=== PATIENT | female | born 1995 | race Caucasian/White ===

== ENCOUNTER 2016-06-25 15:21 | Emergency (ER) | payer MEDICAID ==
[2016-06-25 17:21] VITALS: BP 133/79
== END 2016-06-25 17:21 | disposition home or self-care (01) ==
LOC: ED 15:21
DX: S83.92XA Sprain of unspecified site of left knee, initial encounter (principal); X58.XXXA Exposure to other specified factors, initial encounter; Y93.89 Activity, other specified; Y99.8 Other external cause status; Y92.832 Beach as the place of occurrence of the external cause

== ENCOUNTER 2016-10-11 16:35 | Emergency (ER) | payer MEDICAID ==
[2016-10-11 22:39] VITALS: BP 116/57
== END 2016-10-11 22:39 | disposition home or self-care (01) ==
LOC: ED 16:35
DX: O23.41 Unspecified infection of urinary tract in pregnancy, first trimester (principal); Z3A.01 Less than 8 weeks gestation of pregnancy

== ENCOUNTER 2017-11-17 15:53 | Emergency (ER) | payer MEDICAID ==
[~2017-11-17] VITALS: Ht 167.6 cm; Wt 98.4 kg
[2017-11-17 15:58] VITALS: BP 100/54; Ht 167.6 cm; Wt 98.4 kg
== END 2017-11-17 18:07 | disposition home or self-care (01) ==
LOC: ED 15:53
DX: L21.9 Seborrheic dermatitis, unspecified (principal); J45.909 Unspecified asthma, uncomplicated

== ENCOUNTER 2017-12-06 19:14 | Emergency (ER) | payer MEDICAID ==
[~2017-12-06] VITALS: Ht 167.6 cm; Wt 98.6 kg
[2017-12-06 19:39] VITALS: Ht 167.6 cm; Wt 98.6 kg
[2017-12-06 22:56] VITALS: BP 107/67
== END 2017-12-06 23:11 | disposition home or self-care (01) ==
LOC: ED 19:14
DX: H60.542 Acute eczematoid otitis externa, left ear (principal); J45.909 Unspecified asthma, uncomplicated

== ENCOUNTER 2018-03-24 23:00 | Emergency (ER) | payer MEDICAID, OTHER | END 2018-03-25 02:17 | disposition home or self-care (01) | LOC: ED 23:00 ==

== ENCOUNTER 2018-03-26 12:03 | Emergency (ER) | payer MEDICAID ==
[~2018-03-26] VITALS: Ht 165.1 cm; Wt 102.1 kg
[2018-03-26 12:10] VITALS: Ht 165.1 cm; Wt 102.1 kg
[2018-03-26 12:47] LABS: BASOPHIL % 0.4 % (0-2); PLATELET COUNT 291 x10^3mcL (130-400); RED CELL DISTRIBUTION WIDTH 12.9 % (11.5-14.5)
[2018-03-26 13:08] LABS: microscopic required? YES; urine erythrocyte 3+ (NEGATIVE)
[2018-03-26 16:51] VITALS: BP 127/88
== END 2018-03-26 16:51 | disposition home or self-care (01) ==
LOC: ED 12:03
PROVIDERS: Emergency Medicine
DX: O20.0 Threatened abortion (principal); J45.909 Unspecified asthma, uncomplicated
CPT/HCPCS: 36415

== ENCOUNTER 2018-05-25 23:10 | Emergency (ER) | payer MEDICAID ==
[~2018-05-25] VITALS: Ht 167.6 cm; Wt 98.9 kg
[2018-05-25 23:13] VITALS: Ht 167.6 cm; Wt 98.9 kg
[2018-05-26 02:07] VITALS: BP 127/75
== END 2018-05-26 02:07 | disposition home or self-care (01) ==
LOC: ED 23:10
DX: S86.912A Strain of unspecified muscle(s) and tendon(s) at lower leg level, left leg, initial encounter (principal); X58.XXXA Exposure to other specified factors, initial encounter; Y93.89 Activity, other specified; Y92.89 Other specified places as the place of occurrence of the external cause; Y99.8 Other external cause status
CPT/HCPCS: J1885

== ENCOUNTER 2018-06-09 21:13 | Emergency (ER) | payer MEDICAID ==
[~2018-06-09] VITALS: Ht 167.6 cm; Wt 98.9 kg
[2018-06-09 21:34] VITALS: Ht 167.6 cm; Wt 98.9 kg
[2018-06-09 22:33] LABS: BASOPHIL % 0.1 % (0-2); PLATELET COUNT 248 x10^3mcL (130-400); RED CELL DISTRIBUTION WIDTH 13.3 % (11.5-14.5)
[2018-06-09 22:42] LABS: CALCIUM 9.1 mg/dL (8.5-10.1); CARBON DIOXIDE 24.6 mmol/L (21-32); CHLORIDE SERUM 102 mmol/L (98-107); CREATININE SERUM 0.7 mg/dL (0.6-1.0); GFR1 > 60 mL/min; GLUCOSE SERUM 117 mg/dL (74-106); POTASSIUM SERUM 3.3 mmol/L (3.5-5.1); SODIUM SERUM 140 mmol/L (136-145)
[2018-06-09 22:46] LABS: ALBUMIN 4.1 g/dL (3.4-5.0); ALKALINE PHOSPHATASE 70 U/L (46-116); ALT/SGPT 24 U/L (14-59); AST/SGOT 17 U/L (15-37); BILIRUBIN TOTAL 0.5 mg/dL (0.20-1.00); TOTAL PROTEIN, SERUM 7.8 g/dL (6.4-8.2)
[2018-06-09 23:31] VITALS: BP 122/59
== END 2018-06-09 23:25 | disposition home or self-care (01) ==
LOC: ED 21:13
PROVIDERS: Emergency Medicine
DX: F41.9 Anxiety disorder, unspecified (principal); J45.909 Unspecified asthma, uncomplicated
CPT/HCPCS: 36415; Q0092